=== PATIENT | female | born 1980 | race Caucasian/White ===

== ENCOUNTER → 2020-02-16 | Emergency (ER) | payer OTHER, SELFPAY ==
[~2020-02-16] MED LIST: Adacel (T-DAP) 0.5 ML SYRINGE ONE
== END ==
LOC: BURERS 20:51
DX: S01.01XA Laceration without foreign body of scalp, initial encounter (principal); W01.198A Fall on same level from slipping, tripping and stumbling with subsequent striking against other object, initial encounter; Z23 Encounter for immunization
CPT/HCPCS: 90471; 90715